=== PATIENT | female | born 1985 | race Two or more races ===

== ENCOUNTER 2019-03-11 13:02 | Inpatient (IN) | payer OTHER ==
[~2019-03-11] VITALS: Ht 165.1 cm; Wt 110.5 kg
[~2019-03-11 13:02] MED LIST: FERR27TA PO; PREN1TAB49 PO
[2019-03-11] MEDS ORDERED: OXYTOCIN 30 UNITS/LR 500 ML IV PRN ×2 (13:30→16:30)
[2019-03-11] MEDS ORDERED: CEFAZOLIN 2 GM/50 ML (PMX) 50 ML IVPB SCH (13:30)
[2019-03-11] MEDS ORDERED: MISOPROSTOL 200 MCG TAB PR PRN ×2 (13:30→16:30)
[2019-03-11] MEDS ORDERED: METHYLERGONOVINE 0.2 MG INJ IM PRN ×2 (13:30→16:30)
[2019-03-11] MEDS ORDERED: CARBOPROST 250 MCG INJ IM PRN ×2 (13:30→16:30)
[2019-03-11] MEDS ORDERED: OXYTOCIN 30 UNITS/LR 500 ML IV SCH ×2 (13:30→16:16)
[2019-03-11 13:43] VITALS: BP 119/69; PULSE 86; RESP 18
[2019-03-11] MEDS: LACTATED RINGER'S 1,000 ML IV SCH ×3 (13:44→16:16)
[2019-03-11] MEDS ORDERED: morphine SULFATE/PF (10 MG/10 ML) INJ ONE (15:04)
[2019-03-11] MEDS ORDERED: ONDANSETRON 4 MG INJ ONE (15:12)
[2019-03-11] MEDS ORDERED: METOCLOPRAMIDE 10 MG INJ ONE (15:13)
[2019-03-11] MEDS ORDERED: OXYTOCIN 10 UNIT INJ ONE (15:28)
[2019-03-11] MEDS ORDERED: MIDAZOLAM 1 MG/ML 2 ML INJ ONE (15:34)
[2019-03-11] MEDS ORDERED: LACTATED RINGER'S 1,000 ML IV ONE (15:46)
--- NOTE | 2019-03-11 15:46 | PREAC ---
Date/Time of Note Date/Time of Note DATE: 03/11/19 TIME: 15:44 Anesthesia Eval and Record Evaluation Time Pre-Procedure Interview DATE: 03/11/19 TIME: 14:10 Age 33 Sex female NPO: 8 hrs Preoperative diagnosis iup @ 39 wks., , contractions, prev. c/s Planned procedure repeat c/s Past Medical History Past Medical History: Includes : : (4), Para: (3), Gestational age: (39 wks.) Surgery & Anesthesia Issues No known issue Meds Anticoagulation: Yes Beta Leslie within 24 hr: Yes Reason Beta Leslie not given: Pt. not on B-Leslie Reported Medications Vits W-Ca,Fe,Fa(<1MG) () 1 Tab Tablet, 1 PO DAILY 04/15/11 Discontinued Reported Medications Ferrous Sulfate (Iron) 1 Tab Tablet, 1 PO DAILY 04/15/11 Current Medications Lactated Ringer's 1,000 ml @ 125 mls/hr Q8H IV Last administered on 03/11/19at 14:44; Admin Dose 125 MLS/HR; Start 03/11/19 at 13:17 Cefazolin Sodium/ Dextrose 50 ml @ 100 mls/hr ONCE IVPB ; Start 03/11/19 at 13:30 Oxytocin/Lactated Ringer's 500 ml @ 125 mls/hr POST IV ; Start 03/11/19 at 13:30 Oxytocin/Lactated Ringer's 500 ml @ 0 mls/hr ONCE PRN IV .VAGINAL BLEEDING; Start 03/11/19 at 13:30 Methylergonovine Maleate (Methergine) 0.2 mg ONCE PRN IM .VAGINAL BLEEDING; Start 03/11/19 at 13:30 Carboprost Tromethamine (Hemabate) 250 mcg ONCE PRN IM .VAGINAL BLEEDING; Start 03/11/19 at 13:30 Misoprostol (Cytotec) 1,000 mcg ONCE PRN [place] .VAGINAL BLEEDING; Start 03/11/19 at 13:30 Meds reviewed: Yes Allergies Coded Allergies: No Known Allergies (Verified Allergy, Mild, 04/15/11) Allergies Reviewed: Yes Labs/Studies Labs Reviewed: Reviewed by anesthesiologist Result Diagram: 03/11/19 1334 Laboratory Tests 03/11/19 13:34 Blood Bank Test 03/11/19 13:34 Antibody Screen NEGATIVE Blood Type O POSITIVE Rh Immune Globulin Candidate NO test: Positive Studies: ECG (n/a), CXR (n/a) Pre-procedure Exam Last vitals Vital Signs Date Temp Pulse Resp B/P (MAP) Pulse Ox O2 O2 Flow FiO2 Time Delivery Rate 03/11/19 98.1 86 18 119/69 Room Air 13:43 (86) Airway: Adequate mouth opening, Adequate thyromental dist Mallampati: Mallampati II Teeth: Normal Lung: Normal Heart: Normal ASA Physical Status ASA physical status: 2 Emergency: E Planned Anesthetic General/MAC: MAC Neuraxial: Spinal Planned Pain Management Sub-arachniod narcotics, Parenteral pain med, Local by surgeon Pre-operative Attestations Prior to commencing anesthesia and surgery, the patient was re-evaluated, there was verification of: *The patient's identity *The results of appropriate recent lab work and preoperative vital signs *The above evaluation not changing prior to induction *Anesthetic plan, risk benefits, alternative and complications discussed with patient/family; questions answered; patient/family understands, accepts and wishes to proceed. Ribbon Sweatband Operator used MAGDALENA LEIVA MD Mar 11, 2019 15:46
[2019-03-11] MEDS ORDERED: EPHEDrine 25 MG/5 ML SYG ONE (15:54)
[2019-03-11] MEDS ORDERED: MEPERIDINE 25 MG INJ IV PRN (16:00)
[2019-03-11] MEDS ORDERED: MIDAZOLAM 1 MG/ML 2 ML INJ IV PRN (16:00)
[2019-03-11] MEDS ORDERED: NALBUPHINE HCL (10 MG/1 ML) INJ IV PRN (16:00)
[2019-03-11] MEDS ORDERED: NALOXONE (0.4 MG/ML) INJ IV PRN (16:00)
[2019-03-11] MEDS ORDERED: HYDROmorphONE 0.5 MG/0.5 ML SYG IV PRN ×2 (16:00)
[2019-03-11] MEDS ORDERED: ONDANSETRON 4 MG INJ IV PRN (16:00)
[2019-03-11] MEDS ORDERED: ZOLPIDEM 5 MG TAB PO PRN (16:00)
[2019-03-11] MEDS ORDERED: DIPHENHYDRAMINE 50 MG INJ IV PRN (16:00)
[2019-03-11] MEDS ORDERED: EPHEDrine 25 MG/5 ML SYG IV PRN (16:00)
--- NOTE | 2019-03-11 16:16 | OPPN ---
Date/Time of Note Date/Time of Note DATE: 03/11/19 TIME: 16:14 Operative Report Planned Procedure Procedure date Mar 11, 2019 Procedure(s) REPEAT CSECTION Performed by see signature line Hand Packager: SILVIA TENA MD 2nd Hand Packager none Pre-procedure diagnosis 39 WEEKS IUP PREVIOUS CSECTION [id number] Anesthesia Type: [id number] spinal Post-Procedure Post-procedure diagnosis 39 WEEKS IUP PREVIOUS CSECTION Findings Live Baby BOY, Apgars 9 and 9, weight 8LBS 1OZ Estimated Blood Loss: 500 - 600 mls Specimen(s) none Grafts/Implant(s) PLACENTA Complication(s) none ALIYAH GOODSON MD Mar 11, 2019 16:16
[2019-03-11] MEDS ORDERED: LANOLIN HPA 1 PKT TOP PRN (16:30)
[2019-03-11] MEDS ORDERED: METHYLERGONOVINE 0.2 MG TAB PO PRN (16:30)
--- NOTE | 2019-03-11 17:05 | PAC ---
Date/Time of Note Date/Time of Note DATE: 03/11/19 TIME: 17:05 Post-Anesthesia Notes Post-Anesthesia Note Last documented vital signs Vital Signs Date Temp Pulse Resp B/P (MAP) Pulse Ox O2 O2 Flow FiO2 Time Delivery Rate 03/11/19 98.1 86 18 119/69 Room Air 13:43 (86) Activity: WNL Respiratory function: WNL Cardiovascular function: WNL Mental status: Baseline Pain reasonably controlled: Yes Hydration appropriate: Yes Nausea/Vomiting absent: Yes MAGDALENA LEIVA MD Mar 11, 2019 17:05
[2019-03-11] MEDS: KETOROLAC 30 MG INJ IV PRN (17:34)
[2019-03-11] MEDS: DIPHENHYDRAMINE 50 MG INJ IV PRN (18:03)
[2019-03-11 19:15] VITALS: BP 133/80; PULSE 76; RESP 18
[2019-03-11] MEDS: SENNA/DOCUSATE NA (8.6MG/50MG) TAB PO SCH (21:37)
[2019-03-11 23:30] VITALS: BP 131/67; PULSE 100; RESP 18
--- NOTE | 2019-03-12 00:04 | OPPN ---
Date/Time of Note Date/Time of Note DATE: 03/12/19 TIME: 00:02 Anesthesia Follow up Anesthesia Follow up Last documented vital signs Vital Signs Date Temp Pulse Resp B/P (MAP) Pulse Ox O2 O2 Flow FiO2 Time Delivery Rate 03/11/19 98.8 100 18 131/67 97 Room Air 23:30 (88) Respiratory function: WNL Cardiovascular function: WNL Comments S: pt. is pod #1. min. bt pain. min need for bt pain meds, ie nsaids/opiates. ambulating. min. n/v. O: vss, afeb. A: min. bt pain sec. to it MSO4. P: no complications. MAGDALENA LEIVA MD Mar 12, 2019 00:04
[2019-03-12 03:15] VITALS: BP 131/57; PULSE 103; RESP 19
[2019-03-12] MEDS: LACTATED RINGER'S 1,000 ML IV SCH ×4 (05:27→21:17)
--- NOTE | 2019-03-12 05:43 | OPR ---
DATE OF OPERATION: 03/11/2019 PREOPERATIVE DIAGNOSES: 1. A 39 weeks' intrauterine . 2. Three previous sections. POSTOPERATIVE DIAGNOSES: 1. A 39 weeks' intrauterine . 2. Three previous sections. OPERATION PERFORMED: Repeat low transverse section. SURGEON: Aliyah Mcgregor MD GRADES 1 THROUGH 5 TEACHER: Dr. Whitley. ANESTHESIA: Spinal. ANESTHESIOLOGIST: . OPERATION PERFORMED: Repeat low transverse section. OPERATIVE TECHNIQUE: Under spinal anesthesia, the patient was prepped and draped in the usual fashio n for abdominal surgery. After checking for the effect of the anesthesia, the previous Pfannenstiel scar was excised 12 cm skin incision was performed. The incision was carried from the skin up to the fascia. Upon opening the skin up to the fascia, small blood vessels were noted to be oozing and the se were all cauterized. Fascia was opened transversely followed by splitting the muscles vertical an d the peritoneum vertically. Upon opening the abdominal cavity, the bladder blade was put in place a nd incision was performed from the serosa up to the endometrium on the lower uterine segment and the karina was carried sideways with the aid of my 2 fingers. My left hand was inserted in the lower segme nt of the uterus and the bag of water was ruptured. Clear fluid was noted. Baby's head was delivere d. Baby with good fundal pressure. The baby's airways was quickly suctioned with amniotic fluid. T he anterior shoulder, posterior shoulder, and rest of the body of the baby were delivered. Baby's co rd was clamped after 30 seconds. The baby was handed to the respiratory, taken to the labor and deli very nurse. The placenta was delivered manually and complete. The uterus was exteriorized. The [place] yobani was cleansed with wet lap sponge to make sure that no membranes were left behind. After co rrect sponge count, the uterus was closed in the usual fashion using #1 chromic for the first layer, continuous locking suture was used followed by #1 chromic for the second layer, imbricating sutures w ere used. Bleeders were checked. There was no bleeding noted. After checking for any bleeders in w hich there were none, both tubes and ovaries were inspected. They were healthy looking. The back of the uterus was checked for any hematoma and there was none noted. The [facility] Once again, uterine incision was checked for any bleeders and there was no bleeding not ed. After correct sponge count, needle count and instrument count, by the technical editor and circu lator, the abdomen was closed in the usual fashion using 0 Vicryl for the peritoneum, 0 Vicryl for th e muscles, for the fascia 0 Vicryl continuous stitch was used followed by few [id number] sutures for the subcutaneous tissue, it was closed with 3-0 Vicryl and the skin was closed with 3-0 Vicryl s ubcuticular suture was used. The patient tolerated the procedure well. Estimated blood loss about 6 00 mL. Vital signs were stable during and after the procedure. She delivered a healthy baby boy, Ap gar 9 and 9, at 1534 hours, weighing 8 pounds 1 ounce, 20 inches long, 3660 grams. Dictated By: ALIYAH MCGREGOR MD NS/NTS Conf#: [id number] DID#: [id number] CC: LAST TUTTLE MD;*EndCC*
[2019-03-12 09:00] VITALS: BP 118/64; PULSE 76; RESP 20
[2019-03-12] MEDS ORDERED: HYDROCODONE/APAP (5/325) TAB PO PRN ×2 (09:30)
[2019-03-12] MEDS: DIPHENHYDRAMINE 50 MG INJ IV PRN (11:14)
[2019-03-12] MEDS: SENNA/DOCUSATE NA (8.6MG/50MG) TAB PO SCH ×2 (11:15→20:37)
[2019-03-12 12:15] VITALS: BP 127/68; PULSE 99; RESP 20
[2019-03-12] MEDS: KETOROLAC 30 MG INJ IV PRN (13:22)
[2019-03-12 16:00] VITALS: BP 122/66; PULSE 110; RESP 20
--- NOTE | 2019-03-12 17:58 | PN ---
Date/Time of Note Date/Time of Note DATE: 03/12/19 TIME: 17:57 Assessment/Plan VTE Prophylaxis Risk score (from Ns)>0 risk: 4 SCD applied (from Ns): Yes Pharmacological prophylaxis: NA/contraindicated Pharm contraindication: low risk/ambulating Lines/Catheters IV Catheter Type (from [facility]): Peripheral IV Assessment/Plan Assessment/Plan POSTCSECTION DAY 1 ORDERED ADVANCE DIET TOLERATED CBC ON 3RD POSTOP DAY Result Diagram: 03/12/19 0626 03/12/19 0626 Results 24hrs Laboratory Tests Test 03/12/19 06:26 White Blood Count 10.0 Red Blood Count 3.68 L Hemoglobin 11.3 L Hematocrit 33.2 L Mean Corpuscular Volume 90.2 Mean Corpuscular Hemoglobin 30.7 Mean Corpuscular Hemoglobin Concent 34.0 Red Cell Distribution Width 13.9 Platelet Count 148 # Mean Platelet Volume 11.3 H Immature Granulocytes % 0.500 H Neutrophils % 80.7 H Lymphocytes % 12.8 L Monocytes % 5.0 Eosinophils % 0.4 Basophils % 0.6 Nucleated Red Blood Cells % 0.0 Immature Granulocytes # 0.050 H Neutrophils # 8.1 H Lymphocytes # 1.3 Monocytes # 0.5 Eosinophils # 0.0 Basophils # 0.1 Nucleated Red Blood Cells # 0.0 Sodium Level 136 Potassium Level 3.4 L Chloride Level 103 Carbon Dioxide Level 24 Anion Gap 9 Blood Urea Nitrogen 5 L Creatinine 0.39 L Est Glomerular Filtrat Rate mL/min > 60 Glucose Level 80 Calcium Level 8.7 Subjective 24 Hr Interval Summary Free Text/Dictation POST CSECTION DAY 1 COMPLAIN OF INCISIONAL PAINS GOOD URINE OUTPUT PASSING GAS PER RECTUM NO BOWEL MOVEMENT YET Exam/Review of Systems Exam Vitals Vital Signs Date Temp Pulse Resp B/P (MAP) Pulse Ox O2 O2 Flow FiO2 Time Delivery Rate 03/12/19 99.5 99 20 127/68 96 Room Air 12:15 (87) Intake and Output 03/11/19 03/11/19 03/12/19 1515:00 23:00 07:00 IntakeIntake Total 1100 ml 1175 ml 925 ml OutputOutput Total 50 ml 1213 ml 900 ml BalanceBalance 1050 ml -38 ml 25 ml Exam VITAL SIGNS STABLE: YES AFEBRILE: YES BREAST NOT ENGORGED, NON-TENDER, NO APPRECIABLE MASS: YES LUNGS CLEAR, NO RALES, WHEEZES, RHONCHI: YES SINUS RHYTHM WITHOUT MURMUR: YES ABDOMEN: NON-TENDER FUNDUS: BELOW UMBILICUS BOWEL SOUNDS: PRESENT UTERUS: FIRM INCISION (CLEAN, DRY, AND INTACT): YES LOCHIA: LIGHT DEEP TENDON REFLEXES: 0 EXTREMITIES: NO CALF TENDERNESS EDEMA SCALE: NONE Results Results 24hrs Laboratory Tests Test 03/12/19 06:26 White Blood Count 10.0 Red Blood Count 3.68 L Hemoglobin 11.3 L Hematocrit 33.2 L Mean Corpuscular Volume 90.2 Mean Corpuscular Hemoglobin 30.7 Mean Corpuscular Hemoglobin Concent 34.0 Red Cell Distribution Width 13.9 Platelet Count 148 # Mean Platelet Volume 11.3 H Immature Granulocytes % 0.500 H Neutrophils % 80.7 H Lymphocytes % 12.8 L Monocytes % 5.0 Eosinophils % 0.4 Basophils % 0.6 Nucleated Red Blood Cells % 0.0 Immature Granulocytes # 0.050 H Neutrophils # 8.1 H Lymphocytes # 1.3 Monocytes # 0.5 Eosinophils # 0.0 Basophils # 0.1 Nucleated Red Blood Cells # 0.0 Sodium Level 136 Potassium Level 3.4 L Chloride Level 103 Carbon Dioxide Level 24 Anion Gap 9 Blood Urea Nitrogen 5 L Creatinine 0.39 L Est Glomerular Filtrat Rate mL/min > 60 Glucose Level 80 Calcium Level 8.7 Medications Medication Current Medications Lactated Ringer's 1,000 ml @ 125 mls/hr Q8H IV Last administered on 03/12/19at 05:31; Admin Dose 125 MLS/HR; Start 03/11/19 at 13:17 Methylergonovine Maleate (Methergine) 0.2 mg Q6H PRN PO .VAGINAL BLEEDING; Start 03/11/19 at 16:30 Simethicone (Mylicon) 160 mg Q8H PRN PO .GAS; Start 03/11/19 at 16:30 Senna/Docusate Sodium (Senokot-S) 1 tab BID PO Last administered on 03/12/19at 11:15; Admin Dose 1 TAB; Start 03/11/19 at 21:00 Lanolin (Lanolin Hpa) 1 applic BEDSIDE MEDICATION PRN [place] .NIPPLES; Start 03/11/19 at 16:30 Measles/Mumps/ Rubella Vaccine Live (Mmr Ii Vaccine) 0.5 ml ONCE ONCE SC* ; Start 03/14/19 at 09:00; Stop 03/14/19 at 09:01 Oxytocin/Lactated Ringer's 500 ml @ 0 mls/hr ONCE PRN IV .VAGINAL BLEEDING; Start 03/11/19 at 16:30 Methylergonovine Maleate (Methergine) 0.2 mg ONCE PRN IM .VAGINAL BLEEDING; Start 03/11/19 at 16:30 Carboprost Tromethamine (Hemabate) 250 mcg ONCE PRN IM .VAGINAL BLEEDING; Start 03/11/19 at 16:30 Misoprostol (Cytotec) 1,000 mcg ONCE PRN [place] .VAGINAL BLEEDING; Start 03/11/19 at 16:30 Ibuprofen (Motrin) 800 mg Q6H PRN PO MILD PAIN LEVEL 1-3; Start 03/12/19 at 16:00 Acetaminophen/ Hydrocodone Bitart ([place] (5/325)) 1 tab Q4H PRN PO MODERATE PAIN LEVEL 4-6; Start 03/12/19 at 09:30 Acetaminophen/ Hydrocodone Bitart ([place] (5/325)) 2 tab Q4H PRN PO SEVERE PAIN LEVEL 7-10; Start 03/12/19 at 09:30 ALIYAH GOODSON MD Mar 12, 2019 17:58
[2019-03-12 20:05] VITALS: BP_SYST 118; PULSE 110; RESP 18
[2019-03-12] MEDS: IBUPROFEN 800 MG TAB PO PRN (23:23)
[2019-03-13 03:50] VITALS: BP 108/66; PULSE 95; RESP 18
[2019-03-13] MEDS: LACTATED RINGER'S 1,000 ML IV SCH ×2 (05:17→13:17)
[2019-03-13] MEDS: IBUPROFEN 800 MG TAB PO PRN ×3 (06:08→23:31)
--- NOTE | 2019-03-13 07:21 | PREOPHP ---
DATE OF ADMISSION: 03/11/2019 HISTORY OF PRESENT ILLNESS: This is a 33-year-old lady, 4, para 3, EDC 03/18/2019, at 39 wee ks , admitted to labor and delivery area for repeat . She had 3 previous s ections. She had care at Dr. Tuttle's office, [facility] and the care was un eventful. PAST PERSONAL HISTORY: No history of diabetes, TB, asthma. ALLERGIES: No allergies. SOCIAL HISTORY: Patient does not smoke. She does not drink. MEDICATIONS: She does not take any drugs except her iron and vitamins. GYNECOLOGIC HISTORY: She had menarche at the age of 12, every 28 days interval, 3 to 4 days duration , and moderate in amount. FAMILY HISTORY: Mother has diabetes, otherwise noncontributory. She is 4, para 3. Her firs t delivery was in 2010, second 2011, third 2016 all by C-sections. REVIEW OF SYSTEMS: CARDIOVASCULAR: No chest pains. RESPIRATORY: No cough. GASTROINTESTINAL: No diarrhea, no vomiting. GENITOURINARY: No dysuria. PHYSICAL EXAMINATION: GENERAL: Reveals a conscious, coherent lady and in no acute distress. VITAL SIGNS: Her blood pressure 120/80, pulse rate 80 per minute, respirations 16 per minute. BREASTS, HEART AND LUNGS: Within normal limits. ABDOMEN: Soft, obese. Fundic height 37 cm. heart tones 140 per minute. PELVIC: On admission pelvic exam in the clinic was not done. EXTREMITIES: No pedal edema. ADMITTING DIAGNOSES: 39 weeks' intrauterine , with 3 previous sections. The patie nt was planned to have a repeat . The procedures were explained to the patient by Dr. Isaac duffy nd she understood everything totally. The risks, benefits and alternatives were discussed with her a s well. Dictated By: ALIYAH GOODSON MD NS/NTS Conf#: [id number] DID#: [id number] CC: LAST TUTTLE MD;*EndCC*
[2019-03-13 08:00] VITALS: BP 122/61; PULSE 99; RESP 18
[2019-03-13] MEDS: SENNA/DOCUSATE NA (8.6MG/50MG) TAB PO SCH ×2 (09:54→21:13)
[2019-03-13 15:30] VITALS: BP 114/70; PULSE 103; RESP 18
--- NOTE | 2019-03-13 16:12 | PN ---
Date/Time of Note Date/Time of Note DATE: 03/13/19 TIME: 16:10 Assessment/Plan VTE Prophylaxis Risk score (from Nsg)>0 risk: 4 SCD applied (from Ns): No SCD contraindicated: low risk/ambulating Pharmacological prophylaxis: NA/contraindicated Pharm contraindication: low risk/ambulating Lines/Catheters IV Catheter Type (from Nrsg): Saline Lock Assessment/Plan Assessment/Plan HOME TOMORROW CBC TOMORROW COUNSELED INSTRUCTED PRESCRIPTION GIVEN FOR PAIN RETURN TO CLINIC IN 2 WEEKS CALL OFFICE IF THERE IS ANY PROBLEM OR CONCERN CONTINUE WITH VITAMINS OD AND FERROUS SULFATE 325MG PO TID DIET ADVISED Result Diagram: 03/12/19 0603/12/19 06 Subjective 24 Hr Interval Summary Free Text/Dictation POST CSECTION DAY 2 LITTLE BOWEL MOVEMENT GOOD URINE OUTPUT FEELS LESS INCISIONAL PAINS Exam/Review of Systems Exam Vitals Vital Signs Date Temp Pulse Resp B/P (MAP) Pulse Ox O2 O2 Flow FiO2 Time Delivery Rate 03/13/19 98.4 99 18 122/61 Room Air 08:00 (81) 03/12/19 96 12:15 Intake and Output 03/12/19 03/12/19 03/13/19 1515:00 23:00 07:00 IntakeIntake Total 880 ml OutputOutput Total 3550 ml 900 ml BalanceBalance -2670 ml -900 ml Exam VITAL SIGNS STABLE: YES AFEBRILE: YES BREAST NOT ENGORGED, NON-TENDER, NO APPRECIABLE MASS: YES LUNGS CLEAR, NO RALES, WHEEZES, RHONCHI: YES SINUS RHYTHM WITHOUT MURMUR: YES ABDOMEN: NON-TENDER FUNDUS: BELOW UMBILICUS BOWEL SOUNDS: PRESENT UTERUS: FIRM INCISION (CLEAN, DRY, AND INTACT): YES LOCHIA: LIGHT DEEP TENDON REFLEXES: 0 EXTREMITIES: NO CALF TENDERNESS EDEMA SCALE: NONE Medications Medication Current Medications Lactated Ringer's 1,000 ml @ 125 mls/hr Q8H IV Last administered on 03/12/19at 05:31; Admin Dose 125 MLS/HR; Start 03/11/19 at 13:17 Methylergonovine Maleate (Methergine) 0.2 mg Q6H PRN PO .VAGINAL BLEEDING; Start 03/11/19 at 16:30 Simethicone (Mylicon) 160 mg Q8H PRN PO .GAS; Start 03/11/19 at 16:30 Senna/Docusate Sodium (Senokot-S) 1 tab BID PO Last administered on 03/13/19at 09:54; Admin Dose 1 TAB; Start 03/11/19 at 21:00 Lanolin (Lanolin Hpa) 1 applic BEDSIDE MEDICATION PRN [place] .NIPPLES; Start 03/11/19 at 16:30 Measles/Mumps/ Rubella Vaccine Live (Mmr Ii Vaccine) 0.5 ml ONCE ONCE SC* ; Start 03/14/19 at 09:00; Stop 03/14/19 at 09:01 Oxytocin/Lactated Ringer's 500 ml @ 0 mls/hr ONCE PRN IV .VAGINAL BLEEDING; Start 03/11/19 at 16:30 Methylergonovine Maleate (Methergine) 0.2 mg ONCE PRN IM .VAGINAL BLEEDING; Start 03/11/19 at 16:30 Carboprost Tromethamine (Hemabate) 250 mcg ONCE PRN IM .VAGINAL BLEEDING; Start 03/11/19 at 16:30 Misoprostol (Cytotec) 1,000 mcg ONCE PRN [place] .VAGINAL BLEEDING; Start 03/11/19 at 16:30 Ibuprofen (Motrin) 800 mg Q6H PRN PO MILD PAIN LEVEL 1-3 Last administered on 03/13/19at 15:19; Admin Dose 800 MG; Start 03/12/19 at 16:00 Acetaminophen/ Hydrocodone Bitart ([place] (5/325)) 1 tab Q4H PRN PO MODERATE PAIN LEVEL 4-6; Start 03/12/19 at 09:30 Acetaminophen/ Hydrocodone Bitart ([place] (5/325)) 2 tab Q4H PRN PO SEVERE PAIN LEVEL 7-10; Start 03/12/19 at 09:30 ALIYAH GOODSON MD Mar 13, 2019 16:12
[2019-03-13 20:00] VITALS: BP_SYST 113; BP_SYST 118; BP_DIAS 58; BP_DIAS 73; PULSE 73; PULSE 99; RESP 18
[2019-03-14 03:36] VITALS: BP 120/73; PULSE 81; RESP 18
[2019-03-14] MEDS: IBUPROFEN 800 MG TAB PO PRN ×2 (05:49→12:42)
[2019-03-14 08:00] VITALS: BP 112/66; PULSE 90; RESP 16
[2019-03-14] MEDS ORDERED: DIPHTH/TET/ACEL PERTUSS (ADULT) 0.5 ML VIAL IM* ONE (09:00)
[2019-03-14] MEDS ORDERED: MEASLES,MUMPS,RUBELLA VACCINE INJ SC* ONE (09:00)
[2019-03-14] MEDS: SENNA/DOCUSATE NA (8.6MG/50MG) TAB PO SCH (09:06)
[2019-03-14] MEDS ORDERED: FER325 PO (14:33)
--- NOTE | 2019-03-15 16:11 | DELSUM ---
Delivery Summary A-C Datetime Report Generated by CPN: 03/15/2019 16:11 DELIVERY PERSONNEL Life Scientist: Dianne Sonali MATERNAL INFORMATION Delivery Anesthesia: Spinal Medications in Delivery: SEE ANESTHESIA RECORD Delivery QBL (ml): 500 Placenta Cultured: No Maternal Complications: None LABOR SUMMARY EDC: 03/18/2019 00:00 No. Babies in Womb: 1 Attempted: No Labor Anesthesia: None LABOR INFORMATION Reason for Induction: Not Applicable Oxytocin: N/A Group B Beta Strep: Positive Antibiotics # of Doses: 1 Antibiotics Time of Last Dose: 03/11/2019 15:20 Steroids Given: None Reason Steroids Not Administered: Not Applicable MEMBRANES Membranes Rupture Method: Artificial Rupture of Membranes: 03/11/2019 15:33 Length of Rupture (hr): 0.02 Amniotic Fluid Color: Clear Amniotic Fluid Amount: Moderate Amniotic Fluid Odor: None STAGES OF LABOR Stage 3 hr: -1 Stage 3 min: -59 CSECTION DELIVERY Primary Indication: Repeat Elective Other Primary Indication: PREVIOUS C/S x3 CSection Urgency: Elective CSection Incidence: Repeat Labor: No Labor Elective: Nonelective CSection Incision: Lower Uterine Transverse BABY A INFORMATION Delivery Date/Time: 03/11/2019 15:34 Method of Delivery: Born in Route : No : N/A Forceps: N/A Vacuum Extraction: N/A Shoulder Dystocia : N/A SHOULDER DYSTOCIA BABY A Delivery Date/Time: 03/11/2019 15:34 PRESENTATION/POSITION BABY A Presentation: Cephalic Cephalic Presentation: Vertex Breech Presentation: N/A PLACENTA INFORMATION BABY A Placenta Delivery Time : 03/11/2019 13:35 Placenta Method of Delivery: Manual Removal Placenta Status: Delivered SCORES BABY A Heart Rate 1 min: >100 bpm Resp Effort 1 min: Good Cry Reflex Irritability 1 min: Cough/Sneeze/Pulls Away Muscle Tone 1 min: Active Motion Color 1 min: Body [place], Extremit Blue Resuscitation Effort 1 min: Tactile Stimulation SCORE 1 MIN: 9 Heart Rate 5 min: >100 bpm Resp Effort 5 min: Good Cry Reflex Irritability 5 min: Cough/Sneeze/Pulls Away Muscle Tone 5 min: Active Motion Color 5 min: Body [place], Extremit Blue Resuscitation Effort 5 min: Tactile Stimulation SCORE 5 MIN: 9 INFANT INFORMATION BABY A Gestational Age at Delivery: 39.0 Gestational Status: Full Term- 39- 40.6 Weeks Infant Outcome : Liveborn Infant Condition : Stable Infant Sex: Male IDENTIFICATION/MEDS BABY A ID Band Number: [id number] ID Band Location: Right Leg; Left Arm Sensor Applied: Yes Sensor Number: [id number] Sensor Location : Cord Clamp Vitamin K Given : Not Given Erythromycin Given: Not Given WEIGHT/LENGTH BABY A Birthweight (gm): 3660 Infant Weight (lb): 8 Infant Weight (oz): 1 Length (in): 20.00 Length (cm): 50.80 CORD INFORMATION BABY A No. Cord Vessels: 3 Nuchal Cord : N/A Cord Blood Taken: Yes Infant Suction: Mouth; Nose
--- NOTE | 2019-03-20 03:47 | DS ---
DATE OF ADMISSION: 03/11/2019 DATE OF DISCHARGE: 03/14/2019 This is a 33-year-old lady, 4, para 3, EDC 03/18/2019 at 39 weeks , admitted to labor and delivery area for repeat . HISTORY OF PRESENT ILLNESS: See dictated history and physical. PHYSICAL EXAMINATION: See dictated history and physical. ADMITTING DIAGNOSIS: A 39 weeks' intrauterine with 3 previous sections. HOSPITAL COURSE: The patient underwent a repeat low transverse section on 03/11/2019. She tolerated the procedure well. She did have good postoperative course. The diet was advanced from li quid to general diet. She had good bowel movement postoperatively. She had less pain on the third p ostoperative day. She was discharged home on the third postoperative day on general diet and the act ivity was restricted. She was counseled. She was instructed. She was given a prescription for pain . The hematocrit on discharge was 34%, hemoglobin 11.3. FINAL DIAGNOSES: 1. A 39 weeks' intrauterine . 2. Three previous sections. 3. Delivered. Dictated By: ALIYAH GOODSON MD NS/NTS Conf#: [id number] DID#: [id number] CC: LAST TUTTLE MD;*EndCC*
== END 2019-03-14 15:30 | disposition home or self-care (01) | DRG 788 ==
LOC: L-D 13:02 → PP1 19:03
PROVIDERS: ADMIT Obstetrics & Gynecology; ATTEND Obstetrics & Gynecology
PROC: 3E033VJ Introduction of Other Hormone into Peripheral Vein, Percutaneous Approach (ICD-10-PCS; 2019-03-11)
PROC: 10D00Z1 Extraction of Products of Conception, Low, Open Approach (ICD-10-PCS; principal; 2019-03-11 16:00)
DX: O65.5 Obstructed labor due to abnormality of maternal pelvic organs (principal); O34.211 Maternal care for low transverse scar from previous cesarean delivery; Z3A.39 39 weeks gestation of pregnancy; Z37.0 Single live birth
CPT/HCPCS: 80048; 85025; 85610; 85730; 86592; 86850; 86900; 86901; 88305; J0690; J1200; J1885; J2250; J2274; J2405; J2590; J2765; J7120